=== PATIENT | female | born 1975 | race African-American/Black ===

== ENCOUNTER 2019-06-03 19:37 | Emergency (ER) | payer MEDICAID, OTHER ==
[~2019-06-03] VITALS: Ht 165.1 cm; Wt 69.9 kg
[2019-06-03] MEDS ORDERED: LAMICTAL25 MG ORAL (19:45)
[2019-06-03 20:00] VITALS: BP 116/74
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
[2019-06-03] MEDS ORDERED: Ketorolac 60mg Inj IM ONE (21:15)
[2019-06-03] MEDS ORDERED: Cyclobenzaprine 10mg Tab ORAL ONE (21:15)
--- NOTE | 2019-06-03 21:59 | Diagnostic Imaging Report ---
Indication: Headache Technique: Contiguous 5 mm thick transaxial imaging of the head obtained in a Siemens Sensation [address] scanner. Soft tissue and bone windows generated. Automatic Exposure Control was utilized. Total Dose length Product (DLP): [address] Dose Index Volume (CTDIvol): 60 mGy Comparison: none Findings: The size and configuration of the cortical sulci, basal cisterns, and ventricles are within normal limits for age. There is no mass effect, midline shift, or edema identified. There is no evidence of acute hemorrhage or abnormal intra-axial or extra-axial fluid collections. The bones and soft tissues are unremarkable. Impression: No mass effect, edema or acute bleed. [facility] has communicated the preliminary results to the Emergency Department. Their findings are largely concordant with this report. The CT scanner at [facility] is accredited by the [employer] and the scans are performed using dose optimization techniques as appropriate to a performed exam including Automatic Exposure control.
--- NOTE | 2019-06-03 22:00 | Diagnostic Imaging Report ---
Indication: Cervical trauma/pain. Technique: Continuous helical imaging of the cervical spine was obtained transaxially from the skull base to the upper thoracic spine. 2-D coronal and sagittal reformatted images were obtained. Automatic Exposure Control was utilized. Total Dose length Product (DLP): [address] Dose Index Volume (CTDIvol): 6 mGy Comparison: None Findings: There is no evidence of an acute fracture or malalignment. Atlantoaxial alignment appears normal. Height and configuration of the vertebral bodies and intervertebral discs are within normal limits. Uncovertebral joints and facets are unremarkable. There is no soft tissue swelling. Impression: Negative cervical spine CT [facility] has communicated the preliminary results to the Emergency Department. Their findings are largely concordant with this report. The CT scanner at [facility] is accredited by the [employer] and the scans are performed using dose optimization techniques as appropriate to a performed exam including Automatic Exposure control.
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
[2019-06-03] MEDS ORDERED: NORCO 5-325 TA1 EACH ORAL (22:35)
[2019-06-03] MEDS ORDERED: IBUPROFEN800 MG ORAL (22:35)
[2019-06-03] MEDS ORDERED: CYCLOBENZAPRINE10 MG ORAL (22:35)
[2019-06-03 22:46] VITALS: BP 118/75
--- NOTE | 2019-06-03 22:46 | NUR ---
ED Nurse Note: air splint applied by pattern technician to L foot
--- NOTE | 2019-06-03 22:46 | NUR ---
ED Nurse Note: Pt cleared by health care Provider for discharge. DC instructions/prescription was given and explained to pt and verbalized understanding of teachings. All medical devices such as ID band removed. Pt is AAO x4, ambulatory and left with all personal belongings.
--- NOTE | 2019-06-04 12:48 | Diagnostic Imaging Report ---
Indication: left ankle pain Comparison: None Findings: 3 views of the left ankle obtained. Soft tissues are unremarkable. No acute fracture, malalignment, periostitis, or osteochondral defects are identified. Impression: No acute findings
--- NOTE | 2019-06-04 12:49 | Diagnostic Imaging Report ---
Indication: Left clavicle trauma Comparison: None Findings: 2 views of the left clavicle obtained. No acute fracture or malalignment identified. IMPRESSION: Negative left clavicle series
--- NOTE | 2019-06-04 12:49 | Diagnostic Imaging Report ---
INDICATION: Knee Pain COMPARISON: None 3 views of the left knee were obtained. FINDINGS: No acute fracture, malalignment, or joint effusion are identified. Impression: Negative for acute injury
== END 2019-06-03 22:48 | disposition home or self-care (01) ==
LOC: EMR 21:19
DX: S93.402A Sprain of unspecified ligament of left ankle, initial encounter (principal); S83.92XA Sprain of unspecified site of left knee, initial encounter; S16.1XXA Strain of muscle, fascia and tendon at neck level, initial encounter; S13.4XXA Sprain of ligaments of cervical spine, initial encounter; T14.90XA Injury, unspecified, initial encounter; V43.52XA Car driver injured in collision with other type car in traffic accident, initial encounter; Y92.410 Unspecified street and highway as the place of occurrence of the external cause; Z88.8 Allergy status to other drugs, medicaments and biological substances
CPT/HCPCS: 70450; 72125; 73000; 73562; 73610; 96372; Z7502; 99284

== ENCOUNTER 2019-09-09 06:29 | Inpatient (IN) | payer MEDICAID ==
[~2019-09-09] VITALS: Ht 165.1 cm; Wt 75.1 kg
[~2019-09-09 06:29] MED LIST: CYCLOBENZAPRINE10 MG ORAL; IBUPROFEN800 MG ORAL; LAMICTAL25 MG ORAL; NORCO 5-325 TA1 EACH ORAL
[2019-09-09 06:40] VITALS: BP 97/63
--- NOTE | 2019-09-09 06:40 | NUR ---
ED Nurse Note: Pt walked into ED from home for c/o flu like symptoms for the past four days. Pt reports painful cough that is productive, nausea, body aches, chills and multiple episodes of diarrhea. Pt is aaox4, speaking in full sentences, breathing is normal and unlabored. Pt placed on quality assurance monitor final and put into hospital gown. IV line established, blood drawn by RN. Will continue to monitor.
[2019-09-09] MEDS ORDERED: Albuterol ud Inhalation HHN ONE (06:45)
--- NOTE | 2019-09-09 06:53 | Emergency Room Report ---
History of Present Illness General Chief Complaint: Upper Respiratory Illness Source: Patient Present Illness HPI Patient is a 44-year-old female denies any significant past medical history who presents to the ER complaining of flulike symptoms. Patient complains of multiple episodes of nonbloody diarrhea for the past 4 days. Patient states that she has been intermittently coughing for the past 4 days but that it got worse since last night. She also states that since last night she has generalized body aches, fatigue and weakness. Patient states that her sputum is clear and sometimes has yellowish phlegm. She complains of chest tightness. She denies any fever or chills. She denies any sick contacts. Patient states that she did not receive her influenza vaccination this year and denies any recent travel. She states that she is a daily cigarette and marijuana smoker. Allergies: Coded Allergies: CIPROFLOXACIN (Verified Allergy, Unknown, 06/03/19) Patient History Past Medical History: none Past Surgical History: other - Tonsillectomy Social History: Reports: smoking, drug use - Marijuana use Last Menstrual Period: 08/17/19 Now: No Nursing Documentation-[facility] Past Medical History: No History, Except For Review of Systems All Other Systems: negative except mentioned in HPI Physical Exam Vital Signs Date Time Temp Pulse Resp B/P (MAP) Pulse Ox O2 Delivery O2 Flow Rate FiO2 09/09/19 06:31 98.2 82 22 97/63 (74) 95 Room Air Sp02 EP Interpretation: reviewed, normal General Appearance: no apparent distress, alert, GCS 15, non-toxic Head: normocephalic, atraumatic Eyes: bilateral eye normal inspection, bilateral eye PERRL ENT: hearing grossly normal, normal pharynx, no angioedema, normal voice Neck: full range of motion, supple/symm/no masses Respiratory: chest non-tender, speaking full sentences, wheezing - Scattered wheezes Cardiovascular #1: no edema Cardiovascular #2: 2+ carotid (R), 2+ carotid (L), 2+ radial (R), 2+ radial (L) , 2+ dorsalis pedis (R), 2+ dorsalis pedis (L) Gastrointestinal: normal bowel sounds, non tender, soft, non-distended, no guarding, no rebound Rectal: deferred Genitourinary: normal inspection, no CVA tenderness Musculoskeletal: back normal, normal range of motion, calf tenderness, gait/ station normal, non-tender Neurologic: alert, motor strength/tone normal, oriented x3, sensory intact, responsive, speech normal Psychiatric: judgement/insight normal, memory normal, mood/affect normal, no suicidal/homicidal ideation Lymphatic: no adenopathy Procedures Critical Care Time Critical Care Time Total critical care time: Approximately 35 minutes. Due to a high probability of clinically significant, life threatening deterioration, the patient required my highest level of preparedness to intervene emergently and I personally spent this critical care time directly and personally managing the patient. This critical care time included obtaining a history; examining the patient; pulse oximetry; ordering and review of studies; arranging urgent treatment with development of a management plan; evaluation of patient's response to treatment ; frequent reassessment; and, discussions with other providers.This critical care time was performed to assess and manage the high probability of imminent, life-threatening deterioration that could result in multi-organ failure. It was exclusive of separately billable procedures and treating other patients and teaching time. Please see MDM section and the rest of the note for further information on patient assessment and treatment. Medical Decision Making Diagnostic Impression: Primary Impression: Influenza A Additional Impressions: Tachyarrhythmia PVC (premature ventricular contraction) ER Course Patient reevaluated multiple times throughout her ER stay. Patient persistently tachycardic with frequent PVCs. Patient given 30 cc/kg of IV fluids as well as oral Tamiflu due to the fact that she is influenza A positive. D-dimer elevated and patient tachycardic therefore CT a chest ordered to rule out pulmonary embolism. 11am patient persistently tachycardic with frequent PVCs. CTA demonstrates no evidence for pulmonary embolism or infiltrate. [facility] and [facility]. EKG Diagnostic Results EKG Time: 06:52 EP Interpretation: Yasmin Montana MD Rate: normal Rhythm: NSR - With PVC Rhythm Strip Diag. Results Rhythm Strip Time: 06:53 EP Interpretation: yes Rate: 92 Rhythm: NSR, no ectopy, other - +PVCs Chest X-Ray Diagnostic Results Chest X-Ray Diagnostic Results : Chest X-Ray Ordered: Yes # of Views/Limited/Complete: 1 View Indication: Other - cough EP Interpretation: Yes Interpretation: no consolidation, no effusion, no pneumothorax Impression: No acute disease Last Vital Signs Date Time Temp Pulse Resp B/P (MAP) Pulse Ox O2 Delivery O2 Flow Rate FiO2 09/09/19 06:31 98.2 82 22 97/63 (74) 95 Room Air Disposition: XFER T-[facility] [place] [facility] Condition: Critical Scripts No Active Prescriptions or Reported Meds Referrals: NON PHYSICIAN (PCP) Yasmin Montana M.D. Sep 09, 2019 06:53
--- NOTE | 2019-09-09 07:09 | NUR ---
HAND-OFF: Report given to FRANCISCA Serrato.
[2019-09-09 07:12] LABS: APPEARANCE,URINE SLIGHTLY CLOUDY; BILIRUBIN, URINE NEGATIVE (NEGATIVE); COLOR,URINE PALE YELLOW; GLUCOSE, URINE (UA) NEGATIVE (NEGATIVE); KETONES,URINE NEGATIVE (NEGATIVE); LEUKOCYTE ESTERASE ,URINE NEGATIVE (NEGATIVE); NITRITE,URINE NEGATIVE (NEGATIVE); PH,URINE 6 (4.5-8.0); PROTEIN,URINE NEGATIVE (NEGATIVE); UROBILINOGEN,URINE NORMAL MG/DL (0.0-1.0)
--- NOTE | 2019-09-09 07:12 | NUR ---
ED Nurse Note: Report received from FRANCISCA Bedolla. Pt is lying comfortably in semi-fowlers with no signs of distres. A+Ox4, denies pain/SOB at this time. Pt receiving breating tx from RT. Respirations even and unlabored on room air. Vitals stable as documented.
[2019-09-09 07:22] LABS: ANION GAP 14 mmol/L (5-15); BLOOD UREA NITROGEN 10 mg/dL (7-18); CARBON DIOXIDE 22 MMOL/L (21-32); CHLORIDE 105 MMOL/L (98-107); CREATININE 0.9 MG/DL (0.55-1.30); POTASSIUM 3.9 MMOL/L (3.5-5.1); SODIUM 141 MMOL/L (136-145)
[2019-09-09 07:25] LABS: HEMATOCRIT 36.1 % (37.0-47.0); MEAN CORPUSCULAR VOLUME 82 FL (80-99); PLATELET COUNT 293 K/UL (150-450); RED BLOOD COUNT 4.41 M/UL (4.20-5.40); RED CELL DISTRIBUTION WIDTH 12.1 % (11.6-14.8); WHITE BLOOD COUNT 6.4 K/UL (4.8-10.8)
[2019-09-09 07:26] LABS: ALANINE AMINOTRANSFERASE 52 U/L (12-78); ALBUMIN 3.6 G/DL (3.4-5.0); ALBUMIN/GLOBULIN RATIO 0.9 (1.0-2.7); ALKALINE PHOSPHATASE 71 U/L (46-116); ASPARTATE AMINO TRANSFERASE 42 U/L (15-37); BILIRUBIN,TOTAL 0.9 MG/DL (0.2-1.0)
[2019-09-09] MEDS ORDERED: Ketorolac 30mg Inj IV ONE (07:45)
[2019-09-09] MEDS ORDERED: Acetaminophen 500mg (ES) tab ORAL ONE (07:45)
[2019-09-09] MEDS ORDERED: Oseltamivir 75mg cap ORAL ONE (07:57)
--- NOTE | 2019-09-09 08:00 | NUR ---
ED Nurse Note: Pt having tachycardia @ 112 with frequent PVCs; ED MD aware.
[2019-09-09] MEDS ORDERED: Omnipaque 350 100ml vial INJ PRN (08:15)
--- NOTE | 2019-09-09 08:37 | Diagnostic Imaging Report ---
Indication: Cough Technique: One view of the chest Comparison: none Findings: Lungs and pleural spaces are clear. Heart size is normal. Impression: No acute process
--- NOTE | 2019-09-09 08:43 | NUR ---
ED Nurse Note: Pt back from CT
[2019-09-09] MEDS ORDERED: Oseltamivir 75mg cap ORAL SCH (09:00)
--- NOTE | 2019-09-09 09:30 | Diagnostic Imaging Report ---
ndication: Cough Technique: IV administration nonionic contrast. Spiral acquisitions obtained from the lung bases to the lung apices. Multiplanar and 3-D reconstructions were generated. Total dose length product 180 mGycm. CTDIvol(s) 40 mGy. Dose reduction achieved using automated exposure control Comparison: none Findings: Pulmonary artery opacification is adequate. No intraluminal filling defects or other findings to suggest acute pulmonary embolus are evident. Normal caliber pulmonary arteries. No evidence of right ventricular dilatation. No evidence of thoracic aortic aneurysm or dissection. The included upper abdominal visceral vessels appear unremarkable. The lungs and pleural spaces are clear. No infiltrates, effusions, masses, or nodules. The heart is normal in size. No evidence of pericardial effusion. No mediastinal or hilar mass or adenopathy. The included thyroid is unremarkable. The included upper abdominal anatomy is unremarkable. Impression: Negative The CT scanner at [facility] is accredited by the [employer] and the scans are performed using protocols designed to limit radiation exposure to as low as reasonably achievable to attain images of sufficient resolution adequate for diagnostic evaluation.
[2019-09-09 12:00] VITALS: BP 110/72
[2019-09-09] MEDS ORDERED: Benzonatate 100mg Perles ORAL ONE (13:30)
[2019-09-09] MEDS ORDERED: fentaNYL 100 mcg/2 mL IV ONE (14:00)
--- NOTE | 2019-09-09 14:41 | NUR ---
Note roxana in EDM - 09/09/19 at 1442 by JOHN ED Nurse Note: REPORT GIVEN TO FRANCISCA OLMSTEAD IN SDU.
--- NOTE | 2019-09-09 14:41 | NUR ---
ED Nurse Note: Report given to FRANCISCA Jane in SDU
[2019-09-09 16:00] VITALS: BP 110/49
--- NOTE | 2019-09-09 16:00 | NUR ---
NURSE NOTES:RECEIVED REPORT FROM ISHAN ESPINOSA IN CHARGE.REC,D PT VIA ANUJ 44 YRS FEMALE AOX3 ,DENIES CP OR SOB AT THIS TIME.PT SEEMS CALM AND COOPERATIVE AT THIS TIME. PT ADMITTED WITH DX OF TACHYCARDIA,INFLUENZA +.PT STATED OF HAVING N/V/D ,COUGH,BODY ACHE X5 DAYS.PT STATING OF HAVING A HX OF ANXIETY, SMOKER,BRONCHITIS.FULL BODY ASSESSMENT DONE,SKIN INTACT. H.L G# 20 ON LT AC PATENT AND INTACT.PLACED A TELEPHONE CALL TO DR RAMOS AND MADE AWARE AND NOTIFIED REGARDING NEW ADMISSION. RECE,D ADMISSION ORDERS VIA PHONE FROM DR RAMOS. ALL NEW ORDERS NOTED AND CARRIED OUT. WILL CONT TO MONITOR.
[2019-09-09] MEDS: D5NS 1,000 ML IV SCH (17:12)
[2019-09-09] MEDS ORDERED: Albuterol/Ipratropium 3ml neb HHN PRN (18:45)
--- NOTE | 2019-09-09 19:05 | NUR ---
HAND-OFF: Report given to .ADILENE ESPINOSA.
[2019-09-09] MEDS: Oseltamivir 75mg cap ORAL SCH (21:19)
[2019-09-10] MEDS: D5NS 1,000 ML IV SCH ×4 (03:33→23:21)
[2019-09-10 04:40] LABS: EOSINOPHILS % (AUTO) 0.4 % (0.0-3.0); HEMATOCRIT 32.3 % (37.0-47.0); HEMOGLOBIN 10.7 G/DL (12.0-16.0); LYMPHOCYTES % (AUTO) 17.6 % (20.0-45.0); MEAN CORPUSCULAR VOLUME 81 FL (80-99); MONOCYTES % (AUTO) 14.4 % (1.0-10.0); NEUTROPHILS % (AUTO) 66.7 % (45.0-75.0); PLATELET COUNT 241 K/UL (150-450); RED CELL DISTRIBUTION WIDTH 11.7 % (11.6-14.8); WHITE BLOOD COUNT 3.7 K/UL (4.8-10.8)
[2019-09-10 04:58] LABS: ANION GAP 9 mmol/L (5-15); BLOOD UREA NITROGEN 7 mg/dL (7-18); CARBON DIOXIDE 22 MMOL/L (21-32); CHLORIDE 108 MMOL/L (98-107); CREATININE 0.9 MG/DL (0.55-1.30); POTASSIUM 3.4 MMOL/L (3.5-5.1); SODIUM 139 MMOL/L (136-145)
--- NOTE | 2019-09-10 07:45 | NUR ---
HAND-OFF: Report given to Lola Reeves RN.
--- NOTE | 2019-09-10 07:46 | NUR ---
NURSE NOTES: Report received from Maverick Dunham RN.Pt lying in bed awake, alert noted no resp distress ,no appetite to eat,just drinking juice,with coughing on and off, denies any c/o pain,SR on the monitor,skin warm and dry IV site to LH intact with IVF D5NS at 100 ml/hr,SR up x2 call light within reach bed lock in lowest position will continue with plans of care.
[2019-09-10 08:00] VITALS: BP 92/45
[2019-09-10] MEDS: Oseltamivir 75mg cap ORAL SCH ×2 (08:34→20:54)
--- NOTE | 2019-09-10 10:25 | NUR ---
NURSE NOTES: Dr Hardy at bedside,updated re pt's status and c/o cough,orders given .
[2019-09-10] MEDS ORDERED: Guaifenesin/DM 10ml syrup ORAL PRN ×2 (11:30→14:30)
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
[2019-09-10 12:00] VITALS: BP 99/61
--- NOTE | 2019-09-10 14:22 | NUR ---
TRANSFER TO FLOOR: Patient transferred to4E 406-2 , per bed awake,alert in no resp distress.Report given to Theo fiscal technician. Belongings given to receiving RN.
[2019-09-10] MEDS ORDERED: Albuterol/Ipratropium 3ml neb HHN PRN (14:30)
[2019-09-10] MEDS ORDERED: Omnipaque 350 100ml vial INJ PRN (14:30)
--- NOTE | 2019-09-10 14:37 | NUR ---
*-* INSURANCE *-* ALL CLINICALS AND REVIEWS HAVE BEEN FAXED TO: AHSAN MORA:LIZZIE REF# [id number] P: [phone] F: [phone]
--- NOTE | 2019-09-10 14:40 | NUR ---
NURSE NOTES: report received from FRANCISCA Venegas. Patient arrived to the floor, oriented to room and call light. Patient is alert and oriented and able to make needs known. IV site is running prescribed fluids. No acute signs of distress noted. Patient is on droplet precaution for influenza A. Bed in the low and locked position with call light within reach, will continue to monitor patient.
[2019-09-10 16:00] VITALS: BP 95/55
--- NOTE | 2019-09-10 16:53 | NUR ---
NURSE NOTES: Patient complaining of 8/10 pain consisting of headache and generalized body aches. Contacted Dr Hardy regarding the issue as patient only has Tylenol ordered.
--- NOTE | 2019-09-10 19:30 | NUR ---
NURSE NOTES: Report received from FRANCISCA Hunter. AAo x 4 and able to make needs known. IV site intact and running fluids. No acute signs of distress noted. Patient is on droplet precaution for influenza A. Bed in the low and locked position with call light within reach, will continue to monitor patient.
--- NOTE | 2019-09-10 19:41 | NUR ---
HAND-OFF: Report given to FRANCISCA Goode. Endorsed that Dr Hardy was called twice but did not return call regarding patients pain medication.
[2019-09-10 20:00] VITALS: BP 88/49
--- NOTE | 2019-09-10 20:30 | History and Physical Report ---
DATE OF ADMISSION: 09/09/2019 HISTORY OF PRESENT ILLNESS: This is a 44-year-old female who came to the hospital with flu-like symptoms. She was confirmed to have influenza. She was admitted to the hospital with shortness of breath. She also reported nonbloody diarrhea for the last several days. She also reports cough and fever. She also reports generalized body aches, fatigue and weakness. The patient admits to daily tobacco and marijuana use. ALLERGIES: Ciprofloxacin. PAST MEDICAL HISTORY: None. PAST SURGICAL HISTORY: Tonsillectomy. SOCIAL HISTORY: Admits to marijuana and tobacco use. REVIEW OF SYSTEMS: Denies any headaches, hematemesis, melena, hematochezia, or weight loss. PHYSICAL EXAMINATION: VITAL SIGNS: Blood pressure is 97/60, heart rate is 76, respiratory rate 20, afebrile T-max . GENERAL: Reveals a 44-year-old female. HEENT: Unremarkable. CHEST: Decreased breath sounds bilaterally. ABDOMEN: Soft. NEUROLOGIC: No focal deficits. LABORATORY AND DIAGNOSTIC DATA: Lab testing shows white count 3.7, hemoglobin 10. Potassium 3.4. Troponin is negative. Imaging studies, x-ray chest is obtained which shows clear lung palacios bilaterally. The patient also underwent a CT of the chest, which was negative for PE. IMPRESSION: 1. Influenza pneumonia. 2. Hypotension. 3. Fever. DISCUSSION: Admitted to the hospital. Start IV fluids and replace potassium. Provide Robitussin for cough. IV fluids. We will follow carefully. Derrick Hardy M.D. DR: Te JOB#: [id number] CC:
--- NOTE | 2019-09-10 22:23 | NUR ---
NURSE NOTES: Received order from Dr. Hayley Woodruff 1tb q 6hr prn for pain.
[2019-09-10] MEDS ORDERED: HYDROcodone/Acetamin 5/325 tab ORAL PRN (22:30)
[2019-09-10 23:25] VITALS: BP 102/71
--- NOTE | 2019-09-11 02:45 | Consultation ---
DATE OF CONSULTATION: September 09, 2019 CARDIOLOGY CONSULTATION CONSULTING PHYSICIAN: Theo Khan M.D. REQUESTING PHYSICIAN: Derrick Hardy M.D. REASON FOR CONSULTATION: Ventricular ectopy and tachycardia. HISTORY OF PRESENT ILLNESS: This is a 44-year-old female. She presented to the emergency room with complaints of nonbloody diarrhea, intermittent cough and congestion with the body aches and fatigue. She did not receive a flu vaccination this year. Her influenza A titer was positive in the emergency room. The patient was noted also to have tachycardia and nonsustained ventricular ectopy while in the emergency room. She denied palpitations. PAST MEDICAL HISTORY: Otherwise notable for tonsillectomy. SOCIAL HISTORY: Positive for smoking and marijuana use. ALLERGIES: Include ciprofloxacin. MEDICATIONS: Reviewed and reconciled. PAST SURGICAL HISTORY: Prior tonsillectomy. REVIEW OF SYSTEMS: No history of cardiovascular disease, rheumatic heart disease, or endocarditis. No history of seizure or stroke. No history of diabetes or thyroid impairment. PHYSICAL EXAMINATION: VITAL SIGNS: Blood pressure 97/63, pulse 82, respiratory rate 22, and afebrile. NECK: Jugular venous pressure normal. Carotid upstrokes without delay. LUNGS: Clear. CARDIAC: Regular rhythm. Rapid rate. Normal S1, S2. No murmur. ABDOMEN: Soft. EXTREMITIES: No edema. DIAGNOSTIC DATA: EKG with sinus rhythm and premature ventricular contraction. Chest x-ray with no acute process. IMPRESSION: 1. Influenza A. 2. Nonsustained ventricular ectopy. 3. Hypovolemia, dehydration, and low-range blood pressure. 4. Secondary sinus tachycardia. PLAN: 1. Tamiflu. 2. Hydration. 3. Check potassium and magnesium levels and replace accordingly. 4. Check thyroid panel. 5. DVT prophylaxis. 6. Echocardiogram to assess for structural heart disease. 7. Further cardiovascular workup will follow once preliminary studies have been reviewed. Theo Khan M.D. : JEFF JOB#: [id number] CC: MICHAEL
[2019-09-11 04:00] VITALS: BP 105/74
--- NOTE | 2019-09-11 07:36 | NUR ---
HAND-OFF: Report given to FRANCISCA Roldan.
--- NOTE | 2019-09-11 07:39 | NUR ---
NURSE NOTES: Patient awake, alert x4; on room air, no sing of distress and shortness of breath; no sing of chest pain; IV Left-Hand 22G D5NS at 100cc running; side rails up x2, breaks engaged, bed at lowest position; Chyna pads provided; call light within reach; patient on Airborne percussion; will keep monitoring.
[2019-09-11 08:00] VITALS: BP 117/81
[2019-09-11] MEDS: Oseltamivir 75mg cap ORAL SCH (08:28)
[2019-09-11] MEDS: D5NS 1,000 ML IV SCH (11:15)
--- NOTE | 2019-09-11 11:29 | NUR ---
NURSE NOTES: Patient complain of itching and suspect that she might have reaction to the [place] medication given to patient this mooring for pain; primary nurse notified MD Hardy regarding patient's concern; MD Hardy stated that will see patient this after noon and might discharge patient; no new order received for the itching patient complained about; vitals taken T 98.8 P 59 BP 112/76 sat 98%; will keep monitoring.
--- NOTE | 2019-09-11 11:52 | Pulmonology Progress Note ---
Assessment/Plan Assessment/Plan IMPRESSION: 1. Influenza pneumonia. 2. Hypotension. 3. Fever. DISCUSSION: Dc home PO Tamiflu Benadryl for itching Derrick Hardy M.D. Subjective Interval Events: Itching after [place] Constitutional: Reports: no symptoms HEENT: Repors: no symptoms Respiratory: Reports: no symptoms Cardiovascular: Reports: no symptoms Gastrointestinal/Abdominal: Reports: no symptoms Allergies: Coded Allergies: CIPROFLOXACIN (Verified Allergy, Unknown, 06/03/19) Objective Last 24 Hour Vital Signs Date Time Temp Pulse Resp B/P (MAP) Pulse Ox O2 Delivery O2 Flow Rate FiO2 09/11/19 09:00 Room Air 09/11/19 08:58 97.3 09/11/19 08:00 97.3 65 20 117/81 (93) 99 09/11/19 04:00 98.3 70 20 105/74 (84) 96 09/10/19 23:25 98.1 67 20 102/71 (81) 95 09/10/19 21:00 Room Air 09/10/19 20:00 98.2 97 18 88/49 (62) 97 09/10/19 16:00 99.5 77 18 95/55 (68) 98 09/10/19 12:00 98.2 75 20 99/61 (74) 98 Intake and Output 09/10/19 09/11/19 19:00 07:00 Intake Total 1700 ml 1000 ml Balance 1700 ml 1000 ml Intake Oral 1000 ml IV Total 700 ml 1000 ml # Voids 4 3 # Bowel Movements 1 General Appearance: no acute distress HEENT: normocephalic Respiratory/Chest: chest wall non-tender, lungs clear Cardiovascular: normal peripheral pulses Abdomen: normal bowel sounds Microbiology Date/Time Source Procedure Growth Status 09/09/19 06:41 Blood Blood Culture - Preliminary NO GROWTH AFTER 24 HOURS Resulted 09/09/19 06:41 Blood Blood Culture - Preliminary NO GROWTH AFTER 24 HOURS Resulted 09/09/19 06:45 Nasal Nares - Final Complete 09/09/19 06:45 Nasal Nares - Final Complete Current Medications Medications (Trade) Dose Ordered Sig/Ira Route PRN Reason Start Time Stop Time Status Last Admin Dose Admin Acetaminophen (Tylenol) 650 mg Q6H PRN ORAL Mild Pain/Temp > 100.5 09/10/19 14:30 10/09/19 14:29 09/10/19 18:44 Acetaminophen/ Hydrocodone Bitart ([place] 5/325) 1 tab Q6H PRN ORAL For Pain 09/10/19 22:30 09/17/19 22:29 09/11/19 08:28 Albuterol/ Ipratropium (Albuterol/ Ipratropium) 3 ml Q6H PRN HHN Shortness of Breath 09/10/19 14:30 09/14/19 14:29 Dextrose/Sodium Chloride 1,000 ml @ 100 mls/hr Q10H IV 09/10/19 14:30 10/09/19 17:11 09/11/19 11:15 Guaifenesin/ Dextromethorphan (Robitussin DM Syrup) 10 ml Q6H PRN ORAL For Cough 09/10/19 14:30 10/10/19 14:29 Iohexol (Omnipaque 350 100ml) 100 ml NOW PRN INJ Radiology Procedure 09/10/19 14:30 09/11/19 23:59 Oseltamivir Phosphate (Tamiflu) 75 mg Q12HR ORAL 09/10/19 21:00 09/14/19 20:59 09/11/19 08:28 Derrick Hardy MD Sep 11, 2019 11:52
[2019-09-11] MEDS ORDERED: TAMIFLU75 MG ORAL (11:54)
[2019-09-11 12:00] VITALS: BP 112/76
[2019-09-11] MEDS ORDERED: DiphenhydrAMINE 25mg Tab ORAL SCH (12:00)
[2019-09-11] MEDS ORDERED: D5NS 1000ml IV ONE (13:02)
--- NOTE | 2019-09-11 13:05 | NUR ---
NURSE NOTES: Patient discharged to Home; patient given the original medication prescription from MD Reyes; patient's belongings signed by patient and primary nurse; printed material and teaching given to patient at the bed side regarding patient's diagnosis, medications and when to seek for medical help given t patient. patient is stable upon discharge; patient left the floor ambulating and accompanied by her mother.
--- NOTE | 2019-09-12 00:30 | Progress Note ---
DATE: 09/11/2019 CARDIOLOGY PROGRESS NOTE SUBJECTIVE: The patient's blood pressure readings are at times low. No dizziness noted. Afebrile. Less congestion. No shortness of breath. No hypoxia on room air. OBJECTIVE: VITAL SIGNS: Blood pressure earlier 88/49, now 117/81. Pulse 65, and respiratory rate 20. LUNGS: With few rhonchi. CARDIAC: Regular. Normal S1 and S2. No murmur. ABDOMEN: Soft. EXTREMITIES: No edema. LABORATORY DATA: Echocardiogram revealed no abnormalities with normal ejection fraction. IMPRESSION: 1. Influenza pneumonia. 2. Hypovolemia and associated hypotension. 3. Ventricular ectopy, nonsustained. 4. Hypokalemia, corrected. PLAN: 1. High potassium diet. 2. Tamiflu per primary care physician. 3. No additional cardiovascular workup planned at this time. Theo Khan M.D. DR: SOFY JOB#: [id number] CC: MICHAEL
--- NOTE | 2019-09-12 00:45 | Progress Note ---
DATE: 09/10/2019 CARDIOLOGY PROGRESS NOTE Late entry. SUBJECTIVE: Congestion persists. No fevers. No hypoxia. OBJECTIVE: VITAL SIGNS: Blood pressure 192/45, heart rate 80, and respiratory rate 20. LUNGS: With few rhonchi. CARDIAC: Regular rhythm and rate. Normal S1 and S2. ABDOMEN: Soft. EXTREMITIES: No edema. LABORATORY DATA: Magnesium is 1.8. Potassium 3.4. Echocardiogram revealed no structural heart disease and normal ejection fraction. IMPRESSION: 1. Influenza A. 2. Nonsustained ventricular ectopy likely precipitated by hypokalemia. 3. Hypokalemia. 4. Hypotension due to hypovolemia and acute infection. PLAN: 1. Hydration. 2. Potassium replacement. 3. Antimicrobials per primary care physician. Theo Khan M.D. DR: SOFY JOB#: [id number] CC:
--- NOTE | 2019-09-12 00:45 | Consultation ---
DATE OF CONSULTATION: 09/09/2019 "NOTE: INCOMPLETE DICTATION" CARDIOLOGY CONSULTATION CONSULTING PHYSICIAN: Theo Khan M.D. REQUESTING PHYSICIAN: Derrick Hardy M.D. REASON: Ventricular ectopy. HISTORY OF PRESENT ILLNESS: This is a 44-year-old female. There is no prior cardiac history. She presented to the emergency room complaining of flu-like symptoms. She had a positive influenza swab. She is a cigarette and marijuana smoker. 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 Theo Khan M.D. DR: NANCY JOB#: [id number] CC:
--- NOTE | 2019-09-13 09:42 | Discharge Summary ---
Discharge Summary Discharge Summary _ DATE OF ADMISSION: 09/09/2019 DATE OF DISCHARGE: 09/11/2019 DISCHARGED BY: Dr. Derrick Hardy CONSULTANTS: Dr. Theo Khan BRIEF HOSPITAL COURSE: Patient is a 44-year-old female who came to the hospital with. Symptoms. She reported nonbloody diarrhea for several days. Also had cough and fever. She had body aches, fatigue and weakness. She admits to daily tobacco and marijuana use. She did not receive the flu vaccine. She denied any recent travel. Upon evaluation at the ED, blood work was stable. She was persistently tachycardic with. PVCs. She was given IV fluids. She was positive for influenza A. She was given Tamiflu. Chest x-ray did not show any acute process. D-dimer was elevated. CTA did not show any evidence of pulmonary embolism or infiltrate. She was admitted for influenza pneumonia. Patient was febrile. She was continued on Tamiflu. She was given IV fluids. She was given Robitussin DM. She was given potassium replacement. She underwent cardiac evaluation. Patient had tachycardia and ventricular ectopy. EKG showed sinus rhythm with PVCs. Magnesium was normal. Echocardiogram revealed normal ejection fraction with no abnormalities. Potassium normalized. She was saturating well on room air. She was cleared for discharge home to continue Tamiflu. FINAL DIAGNOSES: Influenza A infection Nonsustained ventricular ectopy likely precipitated by hypokalemia Hypokalemia Hypotension due to hypovolemia and acute infection Secondary tachycardia due to hypovolemia DISPOSITION: Patient was discharged home. DISCHARGE MEDICATIONS: Refer to Discharge Medication List. DISCHARGE INSTRUCTIONS: Follow-up in a week. I have been assigned to complete a discharge summary on this account, I was not involved with the patient's management.--TYRON Del Valle Jacqueline Robles NP Sep 13, 2019 09:42
== END 2019-09-11 13:03 | disposition home or self-care (01) | DRG 113 ==
LOC: EMR 06:47 → EDBEDREQ 13:19 → 2W 14:13 → 4E 09-10 14:17
DX: J10.1 Influenza due to other identified influenza virus with other respiratory manifestations (principal); E86.0 Dehydration; R00.0 Tachycardia, unspecified; I49.3 Ventricular premature depolarization; I95.9 Hypotension, unspecified; E87.6 Hypokalemia; F17.200 Nicotine dependence, unspecified, uncomplicated; E86.1 Hypovolemia
CPT/HCPCS: 36415; 71045; 71275; 80048; 80053; 81003; 81025; 83605; 83735; 84484; 85007; 85025; 85379; 85610; 85730; 86710; 87040; 93005; 93306; 96361; 96374; 96375; 99291; J2405; J7030; J8499